=== PATIENT | male | born 1955 | race African-American/Black ===

== ENCOUNTER 2018-03-20 06:26 | Emergency (ER) | payer MEDICAID ==
[~2018-03-20] VITALS: Ht 177.8 cm; Wt 78.0 kg
[2018-03-20] MEDS ORDERED: LEVETIRACETAM 1000MG/100ML 100 ML IV ONE (07:00)
[2018-03-20 07:28] LABS: BASOPHILS % 0.9 % (0.0-2.0); EOSINOPHILS % 0.8 % (0.0-5.0); HEMATOCRIT. 38.3 % (42.0-52.0); HEMOGLOBIN. 12.8 g/dL (14.0-18.0); LYMPHOCYTES % 13.5 % (20.0-50.0); MEAN CORPUSCULAR HEMOGLOBIN 31.6 pg (28.0-32.0); MEAN CORPUSCULAR VOLUME 94.4 fL (80.0-94.0); MEAN PLATELET VOLUME 9.3 fl (7.4-10.4); MONOCYTES % 4.7 % (2.0-8.0); NEUTROPHILS % 80.1 % (40.0-76.0); PLATELET 166 x1000/uL (130-400); RED BLOOD CELL COUNT 4.06 mill/uL (4.7-6.1); RED CELL DISTRIBUTION WIDTH 13.5 % (11.6-14.6)
[2018-03-20 07:35] LABS: CHLORIDE 111 mEq/L (98-107)
[2018-03-20 07:39] LABS: ETHANOL BLOOD < 10 mg/dL
[2018-03-20 10:00] LABS: CLARITY URINE CLEAR (CLEAR); COLOR URINE YELLOW (YELLOW); KETONES URINE NEGATIVE (NEGATIVE); LEUKOCYTE ESTERASE URINE NEGATIVE (NEGATIVE); NITRITE URINE NEGATIVE (NEGATIVE); OCCULT BLOOD URINE 2+ (NEGATIVE); PROTEIN URINE NEGATIVE (NEGATIVE); UROBILINOGEN URINE 0.2 E.U./dL (0.2-1.0)
[2018-03-20 10:12] LABS: *BARBITURATES SCREEN URINE NEGATIVE (NEGATIVE)
[2018-03-20 10:14] LABS: *BENZODIAZEPINES SCREEN URINE NEGATIVE (NEGATIVE); *COCAINE SCREEN URINE NEGATIVE (NEGATIVE); METHADONE URINE SCREEN NEGATIVE (NEGATIVE); OPIATES URINE SCREEN NEGATIVE (NEGATIVE)
[2018-03-20 10:15] LABS: *AMPHETAMINES SCREEN URINE NEGATIVE (NEGATIVE); CANNABINOID URINE SCREEN PRESUMTIVE POSITIVE (NEGATIVE); PHENCYCLIDINE URINE SCREEN NEGATIVE (NEGATIVE)
[2018-03-20 10:50] VITALS: BP 135/75
== END 2018-03-20 11:44 | disposition home or self-care (01) ==
LOC: ER 06:48
DX: G40.909 Epilepsy, unspecified, not intractable, without status epilepticus (principal); R51 Headache; F41.9 Anxiety disorder, unspecified; F12.10 Cannabis abuse, uncomplicated; F17.200 Nicotine dependence, unspecified, uncomplicated; Z88.0 Allergy status to penicillin
CPT/HCPCS: 36415; 70450; 71045; 80053; 80305; 81003; 85025; 85610; 85730; 96365; 96366; 99284; 99406; G0482; J1953

== ENCOUNTER 2018-04-24 11:50 | Inpatient (IN) | payer MEDICAID ==
[~2018-04-24] VITALS: Ht 180.3 cm; Wt 68.1 kg
[2018-04-24] VITALS (14 sets, daily range): BP systolic 122–157; BP diastolic 61–84
[2018-04-24] MEDS ORDERED: LEVETIRACETAM 500MG PREMIX 100 ML IV ONE (12:30)
[2018-04-24 14:14] LABS: HEMATOCRIT. 40.9 % (42.0-52.0); HEMOGLOBIN. 13.5 g/dL (14.0-18.0); MEAN CORPUSCULAR HEMOGLOBIN 31.3 pg (28.0-32.0); MEAN CORPUSCULAR VOLUME 94.5 fL (80.0-94.0); MEAN PLATELET VOLUME 9.8 fl (7.4-10.4); PLATELET 152 x1000/uL (130-400); RED BLOOD CELL COUNT 4.32 mill/uL (4.7-6.1); RED CELL DISTRIBUTION WIDTH 13.3 % (11.6-14.6)
[2018-04-24 14:17] LABS: CHLORIDE 109 mEq/L (98-107)
[2018-04-24 14:47] LABS: PLATELET ESTIMATE NORMAL
[2018-04-24] MEDS ORDERED: LORAZEPAM 2MG/ML CPJ ONE (16:25)
[2018-04-24] MEDS ORDERED: LORAZEPAM 2MG/ML CPJ IV ONE (16:30)
[2018-04-24] MEDS ORDERED: LORAZEPAM 2MG/ML CPJ IV PRN (16:45)
[2018-04-24] MEDS ORDERED: DEXT 5%/LACTATED RINGERS 1,000 ML IV SCH ×2 (16:45)
[2018-04-24] MEDS ORDERED: ONDANSETRON HCL 4MG/2ML INJ IV PRN (16:45)
[2018-04-24] MEDS ORDERED: HYDROCODONE/ACETAMINOPHEN 5/325MG TABLET PO PRN (16:45)
[2018-04-24 16:51] LABS: CLARITY URINE CLOUDY (CLEAR); COLOR URINE YELLOW (YELLOW); KETONES URINE TRACE (NEGATIVE); LEUKOCYTE ESTERASE URINE NEGATIVE (NEGATIVE); NITRITE URINE NEGATIVE (NEGATIVE); OCCULT BLOOD URINE NEGATIVE (NEGATIVE); PROTEIN URINE NEGATIVE (NEGATIVE); SPECIFIC GRAVITY URINE 1.017 (1.005-1.030); UROBILINOGEN URINE 0.2 E.U./dL (0.2-1.0)
[2018-04-24] MEDS ORDERED: LEVETIRACETAM 500MG PREMIX 100 ML IV SCH (17:00)
[2018-04-24 17:03] LABS: METHADONE URINE SCREEN NEGATIVE (NEGATIVE); OPIATES URINE SCREEN NEGATIVE (NEGATIVE)
[2018-04-24 17:05] LABS: *AMPHETAMINES SCREEN URINE NEGATIVE (NEGATIVE); *BARBITURATES SCREEN URINE NEGATIVE (NEGATIVE); *BENZODIAZEPINES SCREEN URINE NEGATIVE (NEGATIVE); *COCAINE SCREEN URINE NEGATIVE (NEGATIVE); CANNABINOID URINE SCREEN PRESUMTIVE POSITIVE (NEGATIVE); PHENCYCLIDINE URINE SCREEN NEGATIVE (NEGATIVE)
[2018-04-24] MEDS ORDERED: GADOBENATE DIMEGLUMINE 529 MG/ML 10ML IV ONE (17:37)
[2018-04-24 18:00] LABS: INR 1.1; PROTHROMBIN TIME 10.7 sec (9.1-11.1)
[2018-04-24] MEDS ORDERED: HYDROMORPHONE HCL/PF 2MG/ML CPJ IV PRN (21:26)
[2018-04-24] MEDS: DEXT 5%/LACTATED RINGERS 1,000 ML IV SCH (21:54)
[2018-04-24] MEDS: LEVETIRACETAM 500 MG in SODIUM CHLORIDE 0.9% 100 ML IV SCH (21:54)
[2018-04-24] MEDS ORDERED: NICARDIPINE 100 MG in SODIUM CHLORIDE 0.9% 60 ML IV PRN ×4 (22:00)
[2018-04-25] VITALS (94 sets, daily range): BP systolic 109–157; BP diastolic 47–126
[2018-04-25] MEDS ORDERED: KEPP500 MT (03:51)
[2018-04-25 05:03] LABS: CHLORIDE 110 mEq/L (98-107)
[2018-04-25 05:05] LABS: BASOPHILS % 0.7 % (0.0-2.0); EOSINOPHILS % 0.1 % (0.0-5.0); HEMATOCRIT. 39.9 % (42.0-52.0); HEMOGLOBIN. 13.3 g/dL (14.0-18.0); LYMPHOCYTES % 12.5 % (20.0-50.0); MEAN CORPUSCULAR HEMOGLOBIN 31.2 pg (28.0-32.0); MEAN CORPUSCULAR VOLUME 93.3 fL (80.0-94.0); MEAN PLATELET VOLUME 10.7 fl (7.4-10.4); MONOCYTES % 7.6 % (2.0-8.0); NEUTROPHILS % 79.1 % (40.0-76.0); PLATELET 135 x1000/uL (130-400); RED BLOOD CELL COUNT 4.27 mill/uL (4.7-6.1); RED CELL DISTRIBUTION WIDTH 13.2 % (11.6-14.6)
[2018-04-25] MEDS ORDERED: POVIDONE-IODINE OINT 28.4GM TOP ONE (05:46)
[2018-04-25] MEDS ORDERED: THROMBIN (BOVINE) 5000 UNITS/VIAL TOP ONE ×2 (05:47→05:48)
[2018-04-25] MEDS ORDERED: BACITRACIN 15GM TUBE TOP ONE (05:47)
[2018-04-25] MEDS ORDERED: NORMAL SALINE 0.9% 10 ML SYR ONE (05:48)
[2018-04-25] MEDS ORDERED: BACITRACIN 50,000 UNITS/VIAL ONE (05:48)
[2018-04-25] MEDS ORDERED: VANCOMYCIN HCL 500 MG/VIAL ONE (06:23)
[2018-04-25] MEDS ORDERED: LIDOCAINE HCL/EPINEPHRINE 1%-EPI 1:100,000 20 ML VIAL ONE (06:32)
[2018-04-25] MEDS ORDERED: FENTANYL CITRATE/PF 50MCG/ML 2ML VIAL ONE (07:13)
[2018-04-25] MEDS ORDERED: ROCURONIUM BROMIDE 10MG/ML VIAL 5ML IV ONE (07:13)
[2018-04-25] MEDS ORDERED: GLYCOPYRROLATE 0.2 MG/ML 2ML VIAL ONE (07:14)
[2018-04-25] MEDS ORDERED: MIDAZOLAM HCL 2 MG/2 ML VIAL ONE (07:14)
[2018-04-25] MEDS ORDERED: NEOSTIGMINE METHYLSULFATE 1MG/ML 10 ML VIAL ONE (07:14)
[2018-04-25] MEDS ORDERED: PROPOFOL 200MG/20ML VIAL IV ONE (07:14)
[2018-04-25] MEDS ORDERED: DEXAMETHASONE 4MG/ML 1ML VIAL ONE (07:16)
[2018-04-25] MEDS ORDERED: ONDANSETRON HCL 4MG/2ML INJ ONE (07:16)
[2018-04-25] MEDS ORDERED: FENTANYL CITRATE/PF 50MCG/ML 5ML VIAL ONE (08:05)
[2018-04-25] MEDS ORDERED: ONDANSETRON HCL 4MG/2ML INJ IV PRN (09:15)
[2018-04-25] MEDS ORDERED: MAGNESIUM/ALUMINUM HYDROXIDE/SIMETHICONE 30ML UDC PO PRN (09:15)
[2018-04-25] MEDS ORDERED: CEFAZOLIN 1000MG PREMIX 50 ML IV SCH (09:15)
[2018-04-25] MEDS ORDERED: CLONIDINE 0.1MG TABLET PO PRN (09:15)
[2018-04-25] MEDS ORDERED: DOCUSATE SODIUM 100MG CAPSULE PO PRN (09:15)
[2018-04-25] MEDS: LEVETIRACETAM 500 MG in SODIUM CHLORIDE 0.9% 100 ML IV SCH (09:21)
[2018-04-25] MEDS: IPRATROPIUM/ALBUTEROL 0.5-3(2.5)MG/3ML NEB INH SCH ×5 (09:48→23:51)
[2018-04-25 11:01] LABS: BG BASE EXCESS -1.5 mmol/L (-2.0-2.0); BG CARBOXYHEMOGLOBIN 1.1 % (0.5-1.5); BG DEOXYHEMOGLOBIN 1.3 % (0.0-5.0); BG FRACTION INSPIRED OXYGEN 40; BG HCO3 ACT 23.6 mmol/L (22.0-26.0); BG METHEMOGLOBIN 0.3 % (0.0-1.5); BG OXYGEN SATURATION 98.7 % (92.0-98.5); BG OXYHEMOGLOBIN 97.3 % (94.0-97.0); BG PCO2 41.4 mmHg (35.0-45.0); BG PH 7.374 (7.350-7.450); BG PO2 137.6 mmHg (75.0-100.0); BG PRESSURE SUPPORT 8; BG SAMPLE SITE RIGHT RADIAL; BG TOTAL HEMOGLOBIN 14.2 g/dL (12.0-18.0); BG VENT MODE VENT - CPAP
[2018-04-25] MEDS: PANTOPRAZOLE SODIUM 40 MG/VIAL IV SCH (11:58)
[2018-04-25] MEDS ORDERED: CEFAZOLIN SODIUM 1000MG/VIAL IV SCH (14:00)
[2018-04-25] MEDS: DEXT 5%/LACTATED RINGERS 1,000 ML IV SCH (17:16)
[2018-04-25] MEDS ORDERED: VANCOMYCIN 1 G PREMIX 200 ML IV SCH (18:00)
[2018-04-25] MEDS: LEVETIRACETAM 500MG in SODIUM CHLORIDE 0.9% 100ML IV SCH (22:36)
[2018-04-26] VITALS (80 sets, daily range): BP systolic 108–158; BP diastolic 51–86
[2018-04-26] MEDS: IPRATROPIUM/ALBUTEROL 0.5-3(2.5)MG/3ML NEB INH SCH ×5 (04:02→20:15)
[2018-04-26 05:13] LABS: BASOPHILS % 0.4 % (0.0-2.0); HEMATOCRIT. 38.2 % (42.0-52.0); HEMOGLOBIN. 12.6 g/dL (14.0-18.0); LYMPHOCYTES % 7.3 % (20.0-50.0); MEAN CORPUSCULAR HEMOGLOBIN 30.8 pg (28.0-32.0); MEAN CORPUSCULAR VOLUME 93.6 fL (80.0-94.0); MEAN PLATELET VOLUME 9.4 fl (7.4-10.4); MONOCYTES % 9.4 % (2.0-8.0); NEUTROPHILS % 82.9 % (40.0-76.0); PLATELET 128 x1000/uL (130-400); RED BLOOD CELL COUNT 4.08 mill/uL (4.7-6.1)
[2018-04-26 05:15] LABS: CHLORIDE 110 mEq/L (98-107)
[2018-04-26 05:26] LABS: T4 FREE 1.06 ng/dL (0.76-1.46)
[2018-04-26] MEDS: PANTOPRAZOLE SODIUM 40 MG/VIAL IV SCH (08:29)
[2018-04-26] MEDS: DEXT 5%/LACTATED RINGERS 1,000 ML IV SCH (08:30)
[2018-04-26] MEDS: LEVETIRACETAM 500MG in SODIUM CHLORIDE 0.9% 100ML IV SCH ×2 (09:19→21:32)
[2018-04-26] MEDS: FOLIC ACID 1MG TABLET PO SCH (12:22)
[2018-04-26] MEDS: THIAMINE HCL 100MG TABLET PO SCH (12:22)
[2018-04-26] MEDS: MULTIVITAMINS,THER W-MINERALS TABLET PO SCH (12:22)
[2018-04-26] MEDS: HYDROCODONE/ACETAMINOPHEN 5/325MG TABLET PO PRN (18:11)
[2018-04-27] VITALS (46 sets, daily range): BP systolic 114–149; BP diastolic 46–94
[2018-04-27] MEDS: IPRATROPIUM/ALBUTEROL 0.5-3(2.5)MG/3ML NEB INH SCH ×6 (00:43→20:13)
[2018-04-27] MEDS: DEXT 5%/LACTATED RINGERS 1,000 ML IV SCH (02:58)
[2018-04-27 06:23] LABS: BASOPHILS % 0.4 % (0.0-2.0); HEMATOCRIT. 35.1 % (42.0-52.0); HEMOGLOBIN. 11.6 g/dL (14.0-18.0); LYMPHOCYTES % 10.4 % (20.0-50.0); MEAN CORPUSCULAR HEMOGLOBIN 31.1 pg (28.0-32.0); MEAN CORPUSCULAR VOLUME 94.5 fL (80.0-94.0); MEAN PLATELET VOLUME 10.2 fl (7.4-10.4); MONOCYTES % 11.4 % (2.0-8.0); NEUTROPHILS % 77.8 % (40.0-76.0); PLATELET 118 x1000/uL (130-400); RED BLOOD CELL COUNT 3.71 mill/uL (4.7-6.1); RED CELL DISTRIBUTION WIDTH 12.9 % (11.6-14.6)
[2018-04-27 06:33] LABS: CHLORIDE 106 mEq/L (98-107)
[2018-04-27] MEDS: THIAMINE HCL 100MG TABLET PO SCH (08:17)
[2018-04-27] MEDS: PANTOPRAZOLE SODIUM 40 MG/VIAL IV SCH (08:17)
[2018-04-27] MEDS: FOLIC ACID 1MG TABLET PO SCH (08:17)
[2018-04-27] MEDS: MULTIVITAMINS,THER W-MINERALS TABLET PO SCH (08:17)
[2018-04-27] MEDS: LEVETIRACETAM 500MG in SODIUM CHLORIDE 0.9% 100ML IV SCH ×2 (09:50→22:55)
[2018-04-27] MEDS: HYDROCODONE/ACETAMINOPHEN 5/325MG TABLET PO PRN (11:16)
[2018-04-27] MEDS ORDERED: POTASSIUM CHLORIDE 20MEQ TABLET SR PO NR (15:30)
[2018-04-27] MEDS: ACETAMINOPHEN 325MG TABLET PO PRN ×2 (18:53→23:59)
[2018-04-28] VITALS: BP 120/72
[2018-04-28] MEDS: IPRATROPIUM/ALBUTEROL 0.5-3(2.5)MG/3ML NEB INH SCH ×6 (00:05→23:59)
[2018-04-28 04:00] VITALS: BP 122/70
[2018-04-28 07:13] LABS: BASOPHILS % 1.1 % (0.0-2.0); EOSINOPHILS % 0.1 % (0.0-5.0); HEMATOCRIT. 35.1 % (42.0-52.0); HEMOGLOBIN. 11.7 g/dL (14.0-18.0); LYMPHOCYTES % 11.6 % (20.0-50.0); MEAN CORPUSCULAR HEMOGLOBIN 31.4 pg (28.0-32.0); MEAN CORPUSCULAR VOLUME 93.8 fL (80.0-94.0); MEAN PLATELET VOLUME 9.6 fl (7.4-10.4); MONOCYTES % 12.8 % (2.0-8.0); NEUTROPHILS % 74.4 % (40.0-76.0); PLATELET 113 x1000/uL (130-400); RED BLOOD CELL COUNT 3.74 mill/uL (4.7-6.1); RED CELL DISTRIBUTION WIDTH 12.6 % (11.6-14.6)
[2018-04-28 07:22] LABS: CHLORIDE 104 mEq/L (98-107)
[2018-04-28] MEDS: ACETAMINOPHEN 325MG TABLET PO PRN ×2 (07:28→17:33)
[2018-04-28 07:32] LABS: LDL CHOLESTEROL 49 mg/dL (5-100)
[2018-04-28 07:33] LABS: HDL CHOLESTEROL 73 mg/dL (40-59)
[2018-04-28 08:00] VITALS: BP 148/91
[2018-04-28] MEDS: MULTIVITAMINS,THER W-MINERALS TABLET PO SCH (08:50)
[2018-04-28] MEDS: PANTOPRAZOLE SODIUM 40 MG/VIAL IV SCH (08:50)
[2018-04-28] MEDS: FOLIC ACID 1MG TABLET PO SCH (08:50)
[2018-04-28] MEDS: THIAMINE HCL 100MG TABLET PO SCH (08:50)
[2018-04-28] MEDS: DEXT 5%/LACTATED RINGERS 1,000 ML IV SCH (08:58)
[2018-04-28] MEDS: LEVETIRACETAM 500MG in SODIUM CHLORIDE 0.9% 100ML IV SCH ×2 (09:05→21:08)
[2018-04-28 12:00] VITALS: BP 130/72
[2018-04-28] MEDS: LACTULOSE 20G/30ML UDC PO SCH ×2 (14:24→21:08)
[2018-04-28 16:00] VITALS: BP 120/68
[2018-04-28] MEDS: DOCUSATE SODIUM 100MG CAPSULE PO SCH (17:33)
[2018-04-28 20:00] VITALS: BP 118/68
[2018-04-28] MEDS ORDERED: POLYETHYLENE GLYCOL 3350 (17GM) 1 DOSE PACK PO SCH (21:00)
[2018-04-29] VITALS: BP 132/70
[2018-04-29] MEDS: ACETAMINOPHEN 325MG TABLET PO PRN (00:15)
[2018-04-29 04:00] VITALS: BP 136/76
[2018-04-29] MEDS: IPRATROPIUM/ALBUTEROL 0.5-3(2.5)MG/3ML NEB INH SCH ×4 (05:05→16:24)
[2018-04-29 06:33] LABS: BASOPHILS % 0.7 % (0.0-2.0); EOSINOPHILS % 0.1 % (0.0-5.0); HEMATOCRIT. 34.8 % (42.0-52.0); HEMOGLOBIN. 11.5 g/dL (14.0-18.0); LYMPHOCYTES % 15.6 % (20.0-50.0); MEAN CORPUSCULAR HEMOGLOBIN 30.9 pg (28.0-32.0); MEAN CORPUSCULAR VOLUME 93.7 fL (80.0-94.0); MEAN PLATELET VOLUME 9.7 fl (7.4-10.4); MONOCYTES % 12.7 % (2.0-8.0); NEUTROPHILS % 70.9 % (40.0-76.0); PLATELET 119 x1000/uL (130-400); RED BLOOD CELL COUNT 3.71 mill/uL (4.7-6.1); RED CELL DISTRIBUTION WIDTH 12.5 % (11.6-14.6)
[2018-04-29 06:47] LABS: CHLORIDE 104 mEq/L (98-107)
[2018-04-29 07:02] LABS: LDL CHOLESTEROL 51 mg/dL (5-100)
[2018-04-29 07:03] LABS: HDL CHOLESTEROL 70 mg/dL (40-59)
[2018-04-29 08:00] VITALS: BP 127/70
[2018-04-29] MEDS: FOLIC ACID 1MG TABLET PO SCH (09:07)
[2018-04-29] MEDS: THIAMINE HCL 100MG TABLET PO SCH (09:07)
[2018-04-29] MEDS: MULTIVITAMINS,THER W-MINERALS TABLET PO SCH (09:07)
[2018-04-29] MEDS: LEVETIRACETAM 500MG in SODIUM CHLORIDE 0.9% 100ML IV SCH (09:07)
[2018-04-29] MEDS: DOCUSATE SODIUM 100MG CAPSULE PO SCH ×2 (09:07→16:43)
[2018-04-29] MEDS: PANTOPRAZOLE SODIUM 40 MG/VIAL IV SCH (09:08)
[2018-04-29 12:00] VITALS: BP 147/87
[2018-04-29] MEDS ORDERED: THIA100T72 PO (13:45)
[2018-04-29] MEDS ORDERED: POLY17PO3 PO (13:45)
[2018-04-29] MEDS ORDERED: PANT40VI IV (13:45)
[2018-04-29] MEDS ORDERED: DOCU-138 PO (13:45)
[2018-04-29] MEDS ORDERED: FOLI-43 PO (13:45)
[2018-04-29 16:00] VITALS: BP 121/62
[2018-04-29 16:11] VITALS: BP 134/62
== END 2018-04-29 17:45 | DRG 21 ==
LOC: ER 11:50 → MICUSO 16:05 → ENRESERV 17:11 → MICUNO 04-25 07:31 → 6EST 04-27 16:00
PROVIDERS: ADMIT Internal Medicine; ATTEND Internal Medicine
PROC: 009430Z Drainage of Intracranial Subdural Space with Drainage Device, Percutaneous Approach (ICD-10-PCS; principal; 2018-04-25)
PROC: 00C40ZZ Extirpation of Matter from Intracranial Subdural Space, Open Approach (ICD-10-PCS; 2018-04-25)
PROC: 0NQ00ZZ Repair Skull, Open Approach (ICD-10-PCS; 2018-04-25)
PROC: 00U207Z Supplement Dura Mater with Autologous Tissue Substitute, Open Approach (ICD-10-PCS; 2018-04-25)
PROC: 4A103BD Monitoring of Intracranial Pressure, Percutaneous Approach (ICD-10-PCS; 2018-04-25)
PROC: 00H032Z Insertion of Monitoring Device into Brain, Percutaneous Approach (ICD-10-PCS; 2018-04-25)
PROC: 4A00X4Z Measurement of Central Nervous Electrical Activity, External Approach (ICD-10-PCS; 2018-04-27)
DX: I62.01 Nontraumatic acute subdural hemorrhage (principal); J96.00 Acute respiratory failure, unspecified whether with hypoxia or hypercapnia; I63.9 Cerebral infarction, unspecified; G06.2 Extradural and subdural abscess, unspecified; G93.40 Encephalopathy, unspecified; D69.6 Thrombocytopenia, unspecified; E87.8 Other disorders of electrolyte and fluid balance, not elsewhere classified; G96.0 Cerebrospinal fluid leak; G40.409 Other generalized epilepsy and epileptic syndromes, not intractable, without status epilepticus; F12.90 Cannabis use, unspecified, uncomplicated; D50.9 Iron deficiency anemia, unspecified; F41.9 Anxiety disorder, unspecified; R73.9 Hyperglycemia, unspecified; R26.9 Unspecified abnormalities of gait and mobility; D63.8 Anemia in other chronic diseases classified elsewhere; F17.210 Nicotine dependence, cigarettes, uncomplicated; G93.89 Other specified disorders of brain; I10 Essential (primary) hypertension; R47.01 Aphasia; Z78.1 Physical restraint status; Z86.73 Personal history of transient ischemic attack (TIA), and cerebral infarction without residual deficits; Z91.14 Patient's other noncompliance with medication regimen; Z91.19 Patient's noncompliance with other medical treatment and regimen; Z88.0 Allergy status to penicillin
CPT/HCPCS: 36415; 36600; 70553; 71045; 80048; 80061; 80305; 82375; 82805; 84439; 84443; 84481; 85384; 85651; 86850; 86900; 87070; 87075; 88108; 92523; 92610; 93005; 93306; 93970; 94002; 94640; 96365; 96375; 97112; 97116; 97163; 97166; 97530; 97535; 99285; A9577; C1713; C9113; G0482; J1100; J1953; J2060; J2250; J2405; J2704; J2710; J3010; J3370; J3490; J7050; J7620

== ENCOUNTER 2018-05-15 01:35 | Inpatient (IN) | payer MEDICAID ==
[2018-05-15] VITALS (65 sets, daily range): BP systolic 107–151; BP diastolic 65–90
[~2018-05-15] VITALS: Ht 180.3 cm; Wt 67.1 kg
[~2018-05-15 01:35] MED LIST: DOCU-138 PO; FOLI-43 PO; KEPP500 MT; PANT40VI IV; POLY17PO3 PO; THIA100T72 PO
[2018-05-15] MEDS ORDERED: LEVETIRACETAM 500 MG in SODIUM CHLORIDE 0.9% 100 ML IV SCH (03:00)
[2018-05-15] MEDS: DEXT 5%/LACTATED RINGERS 1,000 ML IV SCH ×2 (03:48→17:24)
[2018-05-15] MEDS: DEXAMETHASONE 4MG/ML 1ML VIAL IV SCH ×4 (05:54→23:19)
[2018-05-15] MEDS: LEVETIRACETAM 500 MG in SODIUM CHLORIDE 0.9% 100 ML IV SCH ×2 (06:02→20:55)
[2018-05-15] MEDS ORDERED: GELATIN SPONGE,ABSORBABLE 12-7MM SPONGE ONE (07:30)
[2018-05-15] MEDS ORDERED: THROMBIN (BOVINE) 5000 UNITS/VIAL TOP ONE (07:30)
[2018-05-15] MEDS ORDERED: BACITRACIN 50,000 UNITS/VIAL ONE (07:31)
[2018-05-15] MEDS ORDERED: LIDOCAINE HCL/EPINEPHRINE 1%-EPI 1:100,000 20 ML VIAL ONE (07:31)
[2018-05-15] MEDS ORDERED: NORMAL SALINE 0.9% 10 ML SYR ONE (07:31)
[2018-05-15] MEDS ORDERED: BACITRACIN 15GM TUBE TOP ONE (07:36)
[2018-05-15] MEDS ORDERED: POVIDONE-IODINE OINT 28.4GM TOP ONE (07:36)
[2018-05-15 07:41] LABS: HEMATOCRIT. 39.5 % (42.0-52.0); HEMOGLOBIN. 13.1 g/dL (14.0-18.0); MEAN CORPUSCULAR HEMOGLOBIN 30.9 pg (28.0-32.0); MEAN CORPUSCULAR VOLUME 93.7 fL (80.0-94.0); MEAN PLATELET VOLUME 9.8 fl (7.4-10.4); PLATELET 258 x1000/uL (130-400); RED BLOOD CELL COUNT 4.22 mill/uL (4.7-6.1); RED CELL DISTRIBUTION WIDTH 12.4 % (11.6-14.6)
[2018-05-15 07:50] LABS: INR 1.1; PARTIAL THROMBOPLASTIN TIME 25.9 sec (23.4-31.0); PROTHROMBIN TIME 11.1 sec (9.1-11.1)
[2018-05-15 07:52] LABS: CHLORIDE 106 mEq/L (98-107)
[2018-05-15] MEDS ORDERED: FENTANYL CITRATE/PF 50MCG/ML 2ML VIAL ONE (07:59)
[2018-05-15] MEDS ORDERED: NEOSTIGMINE METHYLSULFATE 1MG/ML 10 ML VIAL ONE (07:59)
[2018-05-15] MEDS ORDERED: ROCURONIUM BROMIDE 10MG/ML VIAL 5ML IV ONE (07:59)
[2018-05-15] MEDS ORDERED: MIDAZOLAM HCL 2 MG/2 ML VIAL ONE (08:00)
[2018-05-15] MEDS ORDERED: PROPOFOL 200MG/20ML VIAL IV ONE (08:00)
[2018-05-15] MEDS ORDERED: GLYCOPYRROLATE 0.2 MG/ML 2ML VIAL ONE (08:00)
[2018-05-15] MEDS ORDERED: DEXAMETHASONE 4MG/ML 1ML VIAL ONE (08:15)
[2018-05-15] MEDS ORDERED: ONDANSETRON HCL 4MG/2ML INJ ONE (08:21)
[2018-05-15] MEDS ORDERED: VANCOMYCIN HCL 500 MG/VIAL ONE (08:32)
[2018-05-15] MEDS ORDERED: EPHEDRINE SULFATE 50MG/ML VIAL ONE (08:39)
[2018-05-15] MEDS ORDERED: LIDOCAINE HCL/PF 1% 10 MG/ML 5ML VIAL ONE (08:39)
[2018-05-15] MEDS ORDERED: SODIUM CHLORIDE 0.9% 10ML VIAL ONE (08:39)
[2018-05-15] MEDS ORDERED: DEXT 5%/LACTATED RINGERS 1,000 ML IV SCH (09:00)
[2018-05-15] MEDS ORDERED: HYDROMORPHONE HCL/PF 2MG/ML CPJ IV PRN (09:15)
[2018-05-15] MEDS ORDERED: ONDANSETRON HCL 4MG/2ML INJ IV PRN (09:15)
[2018-05-15] MEDS ORDERED: MEPERIDINE HCL/PF 25MG/ML CPJ IV PRN (09:15)
[2018-05-15] MEDS ORDERED: LABETALOL HCL 20MG/4ML CARPUJECT IV PRN (09:15)
[2018-05-15 10:13] LABS: PLATELET ESTIMATE NORMAL
[2018-05-15] MEDS: MORPHINE SULFATE 4 MG/ML CPJ (NOT FOR IM USE) IV PRN ×3 (11:08→23:20)
[2018-05-15] MEDS ORDERED: CEFAZOLIN 1000MG PREMIX 50 ML IV SCH (12:00)
[2018-05-15] MEDS ORDERED: CEFAZOLIN SODIUM 1000MG/VIAL IV SCH (14:00)
[2018-05-15] MEDS: VANCOMYCIN 1 G PREMIX 200 ML IV SCH (21:58)
[2018-05-16] VITALS (70 sets, daily range): BP systolic 92–163; BP diastolic 53–95
[2018-05-16] MEDS: NICARDIPINE 100 MG in SODIUM CHLORIDE 0.9% 60 ML IV PRN (02:21)
[2018-05-16] MEDS ORDERED: ONDANSETRON HCL 4MG/2ML INJ IV PRN (03:00)
[2018-05-16] MEDS: DEXAMETHASONE 4MG/ML 1ML VIAL IV SCH ×4 (05:07→23:58)
[2018-05-16] MEDS: MORPHINE SULFATE 4 MG/ML CPJ (NOT FOR IM USE) IV PRN ×4 (05:58→23:59)
[2018-05-16] MEDS: DEXT 5%/LACTATED RINGERS 1,000 ML IV SCH ×2 (06:07→23:59)
[2018-05-16] MEDS: LEVETIRACETAM 500 MG in SODIUM CHLORIDE 0.9% 100 ML IV SCH ×2 (08:23→22:04)
[2018-05-16] MEDS: VANCOMYCIN 1 G PREMIX 200 ML IV SCH ×2 (08:24→19:57)
[2018-05-16 09:24] LABS: HEMATOCRIT. 40.6 % (42.0-52.0); HEMOGLOBIN. 12.9 g/dL (14.0-18.0); MEAN CORPUSCULAR HEMOGLOBIN 30.1 pg (28.0-32.0); MEAN CORPUSCULAR VOLUME 94.4 fL (80.0-94.0); MEAN PLATELET VOLUME 9.1 fl (7.4-10.4); PLATELET 198 x1000/uL (130-400); RED CELL DISTRIBUTION WIDTH 12.7 % (11.6-14.6)
[2018-05-16 09:28] LABS: CHLORIDE 104 mEq/L (98-107)
[2018-05-16 10:19] LABS: PLATELET ESTIMATE NORMAL
[2018-05-16] MEDS: HYDROCODONE/ACETAMINOPHEN 5/325MG TABLET PO PRN (13:34)
[2018-05-17] VITALS (64 sets, daily range): BP systolic 119–159; BP diastolic 60–104
[2018-05-17] MEDS: HYDROCODONE/ACETAMINOPHEN 5/325MG TABLET PO PRN ×2 (01:50→08:29)
[2018-05-17] MEDS: NICARDIPINE 100 MG in SODIUM CHLORIDE 0.9% 60 ML IV PRN (02:38)
[2018-05-17] MEDS: DEXAMETHASONE 4MG/ML 1ML VIAL IV SCH ×4 (05:54→23:59)
[2018-05-17] MEDS: MORPHINE SULFATE 4 MG/ML CPJ (NOT FOR IM USE) IV PRN ×3 (05:55→20:45)
[2018-05-17] MEDS: LEVETIRACETAM 500 MG in SODIUM CHLORIDE 0.9% 100 ML IV SCH ×2 (08:33→20:35)
[2018-05-17] MEDS: DOCUSATE SODIUM 250MG CAPSULE PO PRN (13:37)
[2018-05-17] MEDS: BISACODYL 5MG TABLET PO PRN (13:37)
[2018-05-17] MEDS: DEXT 5%/LACTATED RINGERS 1,000 ML IV SCH (20:35)
[2018-05-17] MEDS: AMLODIPINE 5MG TABLET PO SCH (20:36)
[2018-05-18] VITALS (38 sets, daily range): BP systolic 107–161; BP diastolic 60–101
[2018-05-18] MEDS: MORPHINE SULFATE 4 MG/ML CPJ (NOT FOR IM USE) IV PRN ×2 (02:38→07:52)
[2018-05-18] MEDS: DEXAMETHASONE 4MG/ML 1ML VIAL IV SCH (05:29)
[2018-05-18] MEDS: LEVETIRACETAM 500 MG in SODIUM CHLORIDE 0.9% 100 ML IV SCH (09:40)
[2018-05-18] MEDS: AMLODIPINE 5MG TABLET PO SCH (09:40)
[2018-05-18] MEDS ORDERED: BISACODYL 10MG SUPP PR PRN (10:15)
[2018-05-18 10:26] LABS: BASOPHILS % 0.3 % (0.0-2.0); HEMATOCRIT. 44.2 % (42.0-52.0); HEMOGLOBIN. 14.5 g/dL (14.0-18.0); LYMPHOCYTES % 7.9 % (20.0-50.0); MEAN CORPUSCULAR HEMOGLOBIN 30.7 pg (28.0-32.0); MEAN CORPUSCULAR VOLUME 93.4 fL (80.0-94.0); MEAN PLATELET VOLUME 9.5 fl (7.4-10.4); NEUTROPHILS % 84.8 % (40.0-76.0); PLATELET 189 x1000/uL (130-400); RED BLOOD CELL COUNT 4.74 mill/uL (4.7-6.1); RED CELL DISTRIBUTION WIDTH 12.5 % (11.6-14.6)
[2018-05-18 11:08] LABS: CHLORIDE 102 mEq/L (98-107)
[2018-05-18] MEDS: LEVETIRACETAM 500MG TABLET PO SCH (20:46)
[2018-05-19] VITALS (39 sets, daily range): BP systolic 104–163; BP diastolic 36–100
[2018-05-19] MEDS: MORPHINE SULFATE 4 MG/ML CPJ (NOT FOR IM USE) IV PRN (00:23)
[2018-05-19] MEDS: HYDROCODONE/ACETAMINOPHEN 5/325MG TABLET PO PRN ×2 (05:14→10:10)
[2018-05-19] MEDS: LEVETIRACETAM 500MG TABLET PO SCH ×2 (08:46→20:21)
[2018-05-19] MEDS: DEXAMETHASONE 4MG TABLET PO SCH (08:46)
[2018-05-19] MEDS: AMLODIPINE 5MG TABLET PO SCH (08:47)
[2018-05-19] MEDS: BISACODYL 5MG TABLET PO PRN (16:25)
[2018-05-20 04:00] VITALS: BP 121/53
[2018-05-20 08:00] VITALS: BP 108/72
[2018-05-20] MEDS: AMLODIPINE 5MG TABLET PO SCH (08:38)
[2018-05-20] MEDS: LEVETIRACETAM 500MG TABLET PO SCH ×2 (09:34→20:20)
[2018-05-20] MEDS: DEXAMETHASONE 4MG TABLET PO SCH (09:34)
[2018-05-20 12:00] VITALS: BP 121/72
[2018-05-20 16:30] VITALS: BP 103/65
[2018-05-20 20:00] VITALS: BP 111/64
[2018-05-21] VITALS: BP 105/70
[2018-05-21 04:00] VITALS: BP 112/70
[2018-05-21 08:00] VITALS: BP 115/70
[2018-05-21] MEDS: LEVETIRACETAM 500MG TABLET PO SCH ×2 (09:16→20:20)
[2018-05-21] MEDS: HYDROCODONE/ACETAMINOPHEN 5/325MG TABLET PO PRN (09:16)
[2018-05-21] MEDS: AMLODIPINE 5MG TABLET PO SCH (09:18)
[2018-05-21 12:00] VITALS: BP_SYST 106; BP_SYST 118; BP_DIAS 63; BP_DIAS 71
[2018-05-21 16:00] VITALS: BP 104/60
[2018-05-21 20:00] VITALS: BP 136/80
[2018-05-22] VITALS (7 sets, daily range): BP systolic 102–163; BP diastolic 62–79
[2018-05-22] MEDS: AMLODIPINE 5MG TABLET PO SCH (09:29)
[2018-05-22] MEDS: LEVETIRACETAM 500MG TABLET PO SCH ×2 (09:29→20:54)
[2018-05-22] MEDS: HYDROCODONE/ACETAMINOPHEN 5/325MG TABLET PO PRN ×2 (17:57→21:40)
[2018-05-22] MEDS: DOCUSATE SODIUM 250MG CAPSULE PO PRN (20:54)
[2018-05-22] MEDS ORDERED: ALPRAZOLAM 0.25 MG TABLET PO NR (22:45)
[2018-05-23] VITALS: BP 117/74
[2018-05-23 04:00] VITALS: BP 117/71
[2018-05-23] MEDS: HYDROCODONE/ACETAMINOPHEN 5/325MG TABLET PO PRN ×2 (06:04→12:51)
[2018-05-23 08:00] VITALS: BP 117/74
[2018-05-23] MEDS: AMLODIPINE 5MG TABLET PO SCH (09:10)
[2018-05-23] MEDS: LEVETIRACETAM 500MG TABLET PO SCH (09:11)
[2018-05-23 12:00] VITALS: BP 121/71
[2018-05-23 13:00] VITALS: BP 121/71
[2018-05-23 16:00] VITALS: BP 120/83
== END 2018-05-23 19:10 | DRG 21 ==
LOC: MICUNO 01:35 → 8WST 05-19 22:40
PROVIDERS: ADMIT Internal Medicine; ATTEND Internal Medicine
PROC: 00C40ZZ Extirpation of Matter from Intracranial Subdural Space, Open Approach (ICD-10-PCS; principal; 2018-05-15)
PROC: 00U207Z Supplement Dura Mater with Autologous Tissue Substitute, Open Approach (ICD-10-PCS; 2018-05-15)
PROC: 0NU10JZ Supplement Frontal Bone with Synthetic Substitute, Open Approach (ICD-10-PCS; 2018-05-15)
PROC: 4A103BD Monitoring of Intracranial Pressure, Percutaneous Approach (ICD-10-PCS; 2018-05-15)
DX: I62.03 Nontraumatic chronic subdural hemorrhage (principal); G93.40 Encephalopathy, unspecified; E46 Unspecified protein-calorie malnutrition; R13.0 Aphagia; J44.1 Chronic obstructive pulmonary disease with (acute) exacerbation; R47.01 Aphasia; I62.02 Nontraumatic subacute subdural hemorrhage; I10 Essential (primary) hypertension; D64.9 Anemia, unspecified; G40.909 Epilepsy, unspecified, not intractable, without status epilepticus; F12.90 Cannabis use, unspecified, uncomplicated; Z68.20 Body mass index [BMI] 20.0-20.9, adult; Z88.0 Allergy status to penicillin; R26.9 Unspecified abnormalities of gait and mobility; F17.210 Nicotine dependence, cigarettes, uncomplicated
CPT/HCPCS: 36415; 71045; 80048; 86850; 86900; 88300; 88305; 92610; 93005; 97116; 97162; 97167; 97530; C1713; C1758; J0690; J1100; J1953; J2250; J2270; J2405; J2704; J2710; J3010; J3370; J3490; J7050; J7120; J7121; J8540

== ENCOUNTER 2018-06-10 14:30 | Emergency (ER) | payer MEDICAID ==
[~2018-06-10] VITALS: Ht 182.9 cm; Wt 76.0 kg
[2018-06-10 20:03] VITALS: BP 122/68
== END 2018-06-10 18:32 | disposition left against medical advice (07) ==
LOC: ER 14:30
DX: Z53.21 Procedure and treatment not carried out due to patient leaving prior to being seen by health care provider (principal)

== ENCOUNTER 2021-07-06 13:25 | Emergency (ER) | payer MEDICARE, OTHER ==
[~2021-07-06] VITALS: Ht 180.3 cm; Wt 76.0 kg
[2021-07-06 13:36] VITALS: BP 127/98
[2021-07-06 16:02] LABS: BASOPHILS % 1.2 % (0.0-2.0); EOSINOPHILS % 1.3 % (0.0-5.0); HEMATOCRIT. 39.8 % (42.0-52.0); HEMOGLOBIN. 13.3 g/dL (14.0-18.0); LYMPHOCYTES % 34.7 % (20.0-50.0); MEAN CORPUSCULAR HEMOGLOBIN 30.4 pg (28.0-32.0); MEAN CORPUSCULAR VOLUME 90.9 fL (80.0-94.0); MONOCYTES % 7.1 % (2.0-8.0); NEUTROPHILS % 55.7 % (40.0-76.0); PLATELET 167 x1000/uL (130-400); RED BLOOD CELL COUNT 4.38 mill/uL (4.7-6.1); RED CELL DISTRIBUTION WIDTH 13.1 % (11.6-14.6)
[2021-07-06 16:09] LABS: CHLORIDE 110 mEq/L (98-107)
== END 2021-07-06 17:25 | disposition left against medical advice (07) ==
LOC: ER 13:25
DX: Z53.21 Procedure and treatment not carried out due to patient leaving prior to being seen by health care provider (principal)
CPT/HCPCS: 36415; 71045; 80053; 84484; 85025; 99284

== ENCOUNTER 2023-04-07 22:25 | Emergency (ER) | payer MEDICARE, MEDICAID ==
[~2023-04-07] VITALS: Ht 177.8 cm; Wt 72.0 kg
[2023-04-07 22:43] VITALS: O2SAT 100
[2023-04-07 23:13] LABS: BASOPHILS % 0.7 % (0.0-2.0); EOSINOPHILS % 1.6 % (0.0-5.0); HEMATOCRIT. 39.8 % (42.0-52.0); HEMOGLOBIN. 12.8 g/dL (14.0-18.0); MEAN CORPUSCULAR HEMOGLOBIN 30.6 pg (28.0-32.0); MEAN CORPUSCULAR VOLUME 95.4 fL (80.0-94.0); MEAN PLATELET VOLUME 8.6 fl (7.4-10.4); MONOCYTES % 7.8 % (2.0-8.0); NEUTROPHILS % 66.9 % (40.0-76.0); PLATELET 182 x1000/uL (130-400); RED BLOOD CELL COUNT 4.18 mill/uL (4.7-6.1); RED CELL DISTRIBUTION WIDTH 13.3 % (11.6-14.6); WHITE BLOOD COUNT 7.9 x1000/uL (4.5-11.0)
[2023-04-07 23:24] LABS: PARTIAL THROMBOPLASTIN TIME 26.5 sec (23.4-31.0); PROTHROMBIN TIME 10.6 sec (9.6-11.0)
[2023-04-07 23:30] LABS: ALANINE AMINOTRANSFERASE 12 IU/L (10-49); ALBUMIN 4.1 g/dL (3.2-4.8); ASPARTATE AMINOTRANSFERASE 23 IU/L (<34); CALCIUM 9.3 mg/dL (8.7-10.4); CARBON DIOXIDE 30 mEq/L (21-32); CHLORIDE 107 mEq/L (98-107); ETHANOL BLOOD < 10 mg/dL (<10); GLUCOSE 95 mg/dL (70-105); POTASSIUM 3.4 mEq/L (3.5-5.1); PROTEIN TOTAL 7.5 g/dL (6.0-8.3); SODIUM 142 mEq/L (136-145); TROPONIN I HIGH SENSITIVITY 7 ng/L (3.0-53); UREA NITROGEN BLOOD 25 mg/dL (9-23)
[2023-04-08 03:14] VITALS: BP 135/82; PULSE 74; RESP 15; TEMP 98
== END 2023-04-08 03:33 | disposition left against medical advice (07) ==
LOC: ER 22:25 → UNDOADMIN 04-08 02:44 → MICUSO 04-08 02:44 → UNDODISIN 04-08 03:33
DX: R55 Syncope and collapse (principal); F12.90 Cannabis use, unspecified, uncomplicated; Z86.73 Personal history of transient ischemic attack (TIA), and cerebral infarction without residual deficits; Z98.890 Other specified postprocedural states
CPT/HCPCS: 36415; 71045; 80053; 80320; 83880; 84484; 85025; 93005; 99285; G0480